=== PATIENT | male | born 1940 | race Caucasian/White ===

== ENCOUNTER 2017-08-16 21:57 | Emergency (ER) | payer MEDICARE, OTHER ==
[~2017-08-16] VITALS: Ht 170.2 cm; Wt 71.0 kg
[~2017-08-16 21:57] MED LIST: LISI-661 PO; METF750T2 PO
[2017-08-16] MEDS ORDERED: SOTA80TA PO (22:18)
[2017-08-16] MEDS ORDERED: FURO40TA5 PO (22:18)
[2017-08-16] MEDS ORDERED: SITA100 PO (22:18)
[2017-08-16] MEDS ORDERED: OMEP20CA10 PO (22:18)
[2017-08-16] MEDS ORDERED: AMLO10TA55 PO (22:18)
[2017-08-16 22:24] LABS: GLUCOSE,POINT OF CARE 204 MG/DL (70-110)
[2017-08-16 22:52] LABS: BASOPHILS % (AUTO) 0.4 % (0.0-2.0); EOSINOPHILS % (AUTO) 1.8 % (1.0-6.0); HEMATOCRIT 37.4 % (41-53); HEMOGLOBIN 13.1 g/dL (13.5-17.5); LYMPHOCYTES # (AUTO) 2.7 K/uL (1.0-4.8); LYMPHOCYTES % (AUTO) 34.1 % (22.0-44.0); MEAN CORPUSCULAR HEMOGLOBIN 28.9 pg (26.0-34.0); MEAN CORPUSCULAR HGB CONC 35.1 G/dL (31.0-37.0); MEAN CORPUSCULAR VOLUME 82 fL (80-100); MONOCYTES # (AUTO) 0.6 K/uL (0.1-1.0); MONOCYTES % (AUTO) 7.8 % (2.0-9.0); NEUTROPHILS # (AUTO) 4.5 K/uL (1.8-7.7); NEUTROPHILS % (AUTO) 55.9 % (40.0-70.0); PLATELET COUNT (AUTO) 240 K/uL (150-450); RED BLOOD CELL COUNT(AUTO) 4.54 MIL/uL (4.50-5.90); RED CELL DISTRIBUTION WIDTH 13.1 % (11.5-14.5)
[2017-08-16] MEDS ORDERED: FUROSEMIDE 40 MG/4 ML VIAL IVP ONE (23:00)
[2017-08-16 23:05] LABS: ANION GAP 7 mmol/L (8-16); CALCIUM, TOTAL 9.1 mg/dL (8.8-10.5); CARBON DIOXIDE 29 mmol/L (22-29); CHLORIDE 100 mmol/L (98-107); CREATININE 1.04 mg/dL (0.60-1.30); GLOMERULAR FILTR. RATE CALC > 60 mL/min (>60); GLUCOSE,RANDOM 208 mg/dL (70-110); POTASSIUM 3.9 mmol/L (3.5-5.1); SODIUM SERUM 136 mmol/L (136-145); UREA NITROGEN, BLOOD 14 mg/dL (7-18)
[2017-08-16 23:06] LABS: PROTHROMBIN TIME 10.3 SEC (9.4-11.6)
[2017-08-16 23:10] LABS: ALANINE AMINOTRANSFERASE 29 U/L (12-78); ALBUMIN 3.6 g/dL (3.4-5.0); ALKALINE PHOSPHATASE 104 U/L (46-116); ASPARTATE AMINOTRANSFERASE 15 U/L (15-37); BILIRUBIN,TOTAL 0.3 mg/dL (0.1-1.0); TOTAL PROTEIN, SERUM 7.4 g/dL (6.4-8.2)
[2017-08-16 23:18] LABS: B-TYPE NATRIURETIC PEPTIDE 13 pg/mL (0-100)
[2017-08-17 04:20] VITALS: BP 109/73
== END 2017-08-17 04:21 | disposition home or self-care (01) ==
LOC: EMS 21:59
DX: M79.89 Other specified soft tissue disorders (principal); R63.5 Abnormal weight gain; E11.9 Type 2 diabetes mellitus without complications; I10 Essential (primary) hypertension
CPT/HCPCS: 36415; 71045; 80053; 82962; 83880; 84484; 85025; 85610; 93005; 93970; 96374; 99285; J1940

== ENCOUNTER 2017-09-04 03:10 | Emergency (ER) | payer MEDICARE, OTHER ==
[~2017-09-04] VITALS: Ht 170.2 cm; Wt 71.0 kg
[~2017-09-04 03:10] MED LIST changes: +AMLO10TA55 PO; +FURO40TA5 PO; +OMEP20CA10 PO; +SITA100 PO; +SOTA80TA PO
[2017-09-04 03:13] VITALS: BP 142/88
[2017-09-04] MEDS ORDERED: GLIP5 PO (03:24)
[2017-09-04] MEDS ORDERED: LORA0.5T2 PO (03:24)
[2017-09-04] MEDS ORDERED: METO25 PO (03:24)
[2017-09-04] MEDS ORDERED: SOTA80 PO (03:24)
[2017-09-04] MEDS ORDERED: FURO20 PO (03:24)
[2017-09-04] MEDS ORDERED: ATOR20TA86 PO (03:24)
[2017-09-04 03:44] LABS: GLUCOSE,POINT OF CARE 246 MG/DL (70-110)
[2017-09-04] MEDS ORDERED: KETOROLAC TROMETHAMINE 60 MG/2 ML VIAL IM ONE (03:45)
[2017-09-04] MEDS ORDERED: KETOROLAC TROMETHAMINE 30 MG/ML VIAL IM ONE (03:45)
== END 2017-09-04 04:05 | disposition home or self-care (01) ==
LOC: EMS 03:13
DX: M19.90 Unspecified osteoarthritis, unspecified site (principal); R60.0 Localized edema; G89.29 Other chronic pain; E11.9 Type 2 diabetes mellitus without complications; I10 Essential (primary) hypertension
CPT/HCPCS: 82962; 96372; 99283; J1885

== ENCOUNTER 2021-08-01 15:45 | Emergency (ER) | payer MEDICARE, OTHER ==
[~2021-08-01] VITALS: Ht 167.6 cm; Wt 75.0 kg
[~2021-08-01 15:45] MED LIST changes: +ATOR20TA86 PO; +FURO20 PO; -FURO40TA5 PO; +GLIP5TAB12 PO; -LISI-661 PO; +LISI-893 PO; +LORA-999 PO; -METF750T2 PO; +METO25 PO; -OMEP20CA10 PO; +OMEP20CA12 PO; +SOTA80 PO; -SOTA80TA PO
[2021-08-01] MEDS ORDERED: ACETAMINOPHEN 500 MG TABLET PO ONE (17:00)
[2021-08-01 18:35] VITALS: BP 124/82
[2021-08-01] MEDS ORDERED: ACET-66 PO (18:57)
== END 2021-08-01 21:04 | disposition home or self-care (01) ==
LOC: EMS 15:50
DX: M25.561 Pain in right knee (principal); M17.0 Bilateral primary osteoarthritis of knee; E11.9 Type 2 diabetes mellitus without complications; I10 Essential (primary) hypertension
CPT/HCPCS: 82962; 99283

== ENCOUNTER 2022-02-06 11:07 | Inpatient (IN) | payer MEDICARE, OTHER ==
[~2022-02-06] VITALS: Ht 167.6 cm; Wt 75.6 kg
[~2022-02-06 11:07] MED LIST changes: +ACET-66 PO
[2022-02-06] MEDS ORDERED: METF-1211 PO (11:13)
[2022-02-06] MEDS ORDERED: ACETAMINOPHEN 500 MG TABLET PO ONE (14:30)
[2022-02-06] MEDS ORDERED: ONDANSETRON HCL 4 MG TABLET PO ONE (15:15)
[2022-02-06 15:16] LABS: BASOPHILS % (AUTO) 0.2 % (0.0-2.0); EOSINOPHILS % (AUTO) 0.5 % (1.0-6.0); HEMATOCRIT 41.8 % (41-53); HEMOGLOBIN 13.3 g/dL (13.5-17.5); LYMPHOCYTES # (AUTO) 2.9 K/uL (1.0-4.8); LYMPHOCYTES % (AUTO) 21.5 % (22.0-44.0); MEAN CORPUSCULAR HEMOGLOBIN 27.1 pg (26.0-34.0); MEAN CORPUSCULAR HGB CONC 31.8 G/dL (31.0-37.0); MEAN CORPUSCULAR VOLUME 85 fL (80-100); MONOCYTES # (AUTO) 0.9 K/uL (0.1-1.0); MONOCYTES % (AUTO) 6.4 % (2.0-9.0); NEUTROPHILS # (AUTO) 9.6 K/uL (1.8-7.7); NEUTROPHILS % (AUTO) 71.4 % (40.0-70.0); PLATELET COUNT (AUTO) 280 K/uL (150-450); RED BLOOD CELL COUNT(AUTO) 4.91 MIL/uL (4.50-5.90)
[2022-02-06 15:26] LABS: ANION GAP 4 mmol/L (8-16); CALCIUM, TOTAL 9.9 mg/dL (8.8-10.5); CARBON DIOXIDE 31 mmol/L (22-29); CHLORIDE 99 mmol/L (98-107); CREATININE 0.88 mg/dL (0.60-1.30); GLOMERULAR FILTR. RATE CALC > 60 mL/min (>60); GLUCOSE,RANDOM 263 mg/dL (70-110); POTASSIUM 3.9 mmol/L (3.5-5.1); SODIUM SERUM 134 mmol/L (136-145); UREA NITROGEN, BLOOD 14 mg/dL (7-18)
[2022-02-06 15:27] LABS: MAGNESIUM 1.4 mg/dL (1.80-2.40); PHOSPHORUS 2.7 mg/dL (2.5-4.9)
[2022-02-06 15:33] LABS: ALANINE AMINOTRANSFERASE 19 U/L (12-78); ALBUMIN 3.5 g/dL (3.4-5.0); ALKALINE PHOSPHATASE 96 U/L (46-116); ASPARTATE AMINOTRANSFERASE 11 U/L (15-37); BILIRUBIN,TOTAL 0.3 mg/dL (0.1-1.0); CREATINE KINASE, TOTAL ONLY 51 U/L (39-308); TOTAL PROTEIN, SERUM 7.2 g/dL (6.4-8.2)
[2022-02-06 15:37] LABS: B-TYPE NATRIURETIC PEPTIDE 12 pg/mL (0-100)
[2022-02-06] MEDS ORDERED: GADOTERATE MEGLUMINE 10 MMOL/20 ML VIAL IVP ONE (16:14)
[2022-02-06] MEDS ORDERED: DEXTROSE 50%-WATER 25 GM/50 ML SYRINGE IVP PRN (16:45)
[2022-02-06] MEDS ORDERED: CloNIDine HCL 0.1 MG TABLET PO PRN (16:45)
[2022-02-06] MEDS: ASPIRIN 81 MG CHEWABLE TABLET PO SCH (16:45)
[2022-02-06 18:23] LABS: COVID AG,FIA SOURCE NASAL SWAB
[2022-02-06] MEDS: AmLODIPine BESYLATE 5 MG TABLET PO SCH (21:27)
[2022-02-06] MEDS: ATORVASTATIN CALCIUM 20 MG TABLET PO SCH (21:28)
[2022-02-06] MEDS: SOTALOL HCL 80 MG TABLET PO SCH (21:30)
[2022-02-07 05:06] VITALS: BP 129/81
[2022-02-07] MEDS: INSULIN LISPRO 100 UNITS/ML SQ PRN ×4 (06:40→20:08)
[2022-02-07 06:51] LABS: GLUCOMETER DEV NAME(LOC) 5S.2B; GLUCOSE,POINT OF CARE 211 MG/DL (70-110)
[2022-02-07 07:20] VITALS: BP 146/86
[2022-02-07] MEDS: SOTALOL HCL 80 MG TABLET PO SCH ×2 (10:24→20:07)
[2022-02-07] MEDS: ASPIRIN 81 MG CHEWABLE TABLET PO SCH (10:25)
[2022-02-07 11:44] VITALS: BP 139/79
[2022-02-07 15:03] VITALS: BP 132/76
[2022-02-07 19:32] VITALS: BP 131/72
[2022-02-07] MEDS: AmLODIPine BESYLATE 5 MG TABLET PO SCH (20:07)
[2022-02-07] MEDS: ATORVASTATIN CALCIUM 20 MG TABLET PO SCH (20:07)
[2022-02-07 20:21] LABS: GLUCOMETER DEV NAME(LOC) 5S.2B; GLUCOSE,POINT OF CARE 183 MG/DL (70-110)
[2022-02-07 20:21] LABS: GLUCOMETER DEV NAME(LOC) 5S.2B; GLUCOSE,POINT OF CARE 366 MG/DL (70-110)
[2022-02-07 20:21] LABS: GLUCOMETER DEV NAME(LOC) 5S.2B; GLUCOSE,POINT OF CARE 241 MG/DL (70-110)
[2022-02-08 00:11] VITALS: BP 138/77
[2022-02-08 04:15] VITALS: BP 140/77
[2022-02-08] MEDS: INSULIN LISPRO 100 UNITS/ML SQ PRN ×2 (06:17→12:02)
[2022-02-08] MEDS: ASPIRIN 81 MG CHEWABLE TABLET PO SCH (08:32)
[2022-02-08] MEDS: SOTALOL HCL 80 MG TABLET PO SCH (08:33)
[2022-02-08 08:35] VITALS: BP 138/94
[2022-02-08 11:24] VITALS: BP 138/69
[2022-02-08] MEDS ORDERED: MAGNESIUM OXIDE 400 MG TABLET PO ONE (12:15)
[2022-02-08] MEDS ORDERED: MetFORMIN HCL 850 MG TABLET PO ONE (12:15)
[2022-02-08 15:31] VITALS: BP 139/85
[2022-02-08] MEDS ORDERED: MetFORMIN HCL 500 MG TABLET PO SCH (18:00)
[2022-02-08 20:52] LABS: GLUCOMETER DEV NAME(LOC) 5S.2B; GLUCOSE,POINT OF CARE 198 MG/DL (70-110)
== END 2022-02-08 16:00 | disposition home or self-care (01) | DRG 55 ==
LOC: EMS 11:12 → 5S 02-07 02:49
PROVIDERS: ADMIT Internal Medicine; ATTEND Internal Medicine
DX: D33.2 Benign neoplasm of brain, unspecified (principal); M17.0 Bilateral primary osteoarthritis of knee; Z20.822 Contact with and (suspected) exposure to COVID-19; I25.10 Atherosclerotic heart disease of native coronary artery without angina pectoris; I11.0 Hypertensive heart disease with heart failure; I50.9 Heart failure, unspecified; E11.65 Type 2 diabetes mellitus with hyperglycemia; Z82.49 Family history of ischemic heart disease and other diseases of the circulatory system; Z83.3 Family history of diabetes mellitus; Z79.4 Long term (current) use of insulin
CPT/HCPCS: 70450; 70553; 71045; 80053; 82533; 82550; 82962; 83735; 83880; 84100; 84146; 84305; 84443; 84484; 85025; 93005; 93306; 99285; Q0162; 36415-L1; 36415-TC

== ENCOUNTER 2022-07-11 09:29 | Emergency (ER) | payer MEDICARE, OTHER ==
[~2022-07-11] VITALS: Ht 170.2 cm; Wt 70.0 kg
[~2022-07-11 09:29] MED LIST changes: -ACET-66 PO; +ATOR20TA PO; -ATOR20TA86 PO; -FURO20 PO; +METF-1211 PO; -METO25 PO
[2022-07-11] MEDS ORDERED: ESCI20TA37 PO (09:35)
[2022-07-11] MEDS ORDERED: GLIP5TAB11 PO (09:35)
[2022-07-11] MEDS ORDERED: ASPI-1451 PO (09:35)
[2022-07-11] MEDS ORDERED: ACETAMINOPHEN 500 MG TABLET PO ONE (11:15)
[2022-07-11 12:26] LABS: BASOPHILS % (AUTO) 0.2 % (0.0-2.0); EOSINOPHILS % (AUTO) 1.6 % (1.0-6.0); HEMATOCRIT 37.5 % (41-53); HEMOGLOBIN 12.5 g/dL (13.5-17.5); LYMPHOCYTES # (AUTO) 2.4 K/uL (1.0-4.8); LYMPHOCYTES % (AUTO) 27.8 % (22.0-44.0); MEAN CORPUSCULAR HEMOGLOBIN 27.8 pg (26.0-34.0); MEAN CORPUSCULAR HGB CONC 33.3 G/dL (31.0-37.0); MEAN CORPUSCULAR VOLUME 83 fL (80-100); MONOCYTES # (AUTO) 0.6 K/uL (0.1-1.0); MONOCYTES % (AUTO) 7.3 % (2.0-9.0); NEUTROPHILS # (AUTO) 5.5 K/uL (1.8-7.7); NEUTROPHILS % (AUTO) 63.1 % (40.0-70.0); PLATELET COUNT (AUTO) 268 K/uL (150-450); RED BLOOD CELL COUNT(AUTO) 4.49 MIL/uL (4.50-5.90); RED CELL DISTRIBUTION WIDTH 13.7 % (11.5-14.5)
[2022-07-11 12:34] LABS: ANION GAP 7 mmol/L (8-16); CALCIUM, TOTAL 9.4 mg/dL (8.8-10.5); CARBON DIOXIDE 26 mmol/L (22-29); CHLORIDE 101 mmol/L (98-107); CREATININE 0.93 mg/dL (0.60-1.30); GLOMERULAR FILTR. RATE CALC > 60 mL/min (>60); GLUCOSE,RANDOM 248 mg/dL (70-110); POTASSIUM 4.2 mmol/L (3.5-5.1); SODIUM SERUM 134 mmol/L (136-145)
[2022-07-11 12:39] LABS: ALANINE AMINOTRANSFERASE 17 U/L (12-78); ALBUMIN 3.5 g/dL (3.4-5.0); ALKALINE PHOSPHATASE 110 U/L (46-116); ASPARTATE AMINOTRANSFERASE 12 U/L (15-37); BILIRUBIN,TOTAL 0.2 mg/dL (0.1-1.0); LIPASE 94 U/L (73-393); TOTAL PROTEIN, SERUM 7.1 g/dL (6.4-8.2)
[2022-07-11] MEDS ORDERED: ACET-66 PO (13:11)
[2022-07-11 13:37] VITALS: BP 111/83
== END 2022-07-11 13:41 | disposition home or self-care (01) ==
LOC: EMS 09:29
DX: S29.011A Strain of muscle and tendon of front wall of thorax, initial encounter (principal); R07.89 Other chest pain; E11.65 Type 2 diabetes mellitus with hyperglycemia; F41.9 Anxiety disorder, unspecified; E78.00 Pure hypercholesterolemia, unspecified; I10 Essential (primary) hypertension; M17.0 Bilateral primary osteoarthritis of knee; W19.XXXA Unspecified fall, initial encounter; Y93.89 Activity, other specified; Y92.89 Other specified places as the place of occurrence of the external cause; Y99.8 Other external cause status
CPT/HCPCS: 71101; 80053; 82962; 83690; 84484; 85025; 93005; 99285

== ENCOUNTER 2022-12-16 10:27 | Emergency (ER) | payer MEDICARE, OTHER ==
[~2022-12-16] VITALS: Ht 170.2 cm; Wt 74.0 kg
[~2022-12-16 10:27] MED LIST changes: +ACET-66 PO; +ASPI-1451 PO; +ESCI20TA37 PO; -GLIP5TAB12 PO; +GLIP5TAB15 PO; -SOTA80 PO; +SOTA80TA90 PO
[2022-12-16 10:40] VITALS: TEMP 98.2
[2022-12-16] MEDS ORDERED: GABA-534 PO (10:46)
[2022-12-16] MEDS ORDERED: SIMV-43 PO (11:42)
[2022-12-16] MEDS ORDERED: FAMO20 PO (11:42)
[2022-12-16] MEDS ORDERED: TAMS0.4C94 PO (11:42)
[2022-12-16] MEDS ORDERED: SEMA1PEN3 SQ (11:42)
[2022-12-16] MEDS ORDERED: LATA2.5D14 OU (11:42)
[2022-12-16] MEDS ORDERED: DORZ10DR10 OU (11:42)
[2022-12-16] MEDS ORDERED: IBUPROFEN 600 MG TABLET PO ONE (11:45)
[2022-12-16] MEDS ORDERED: IBUP-1554 PO (13:54)
[2022-12-16] MEDS ORDERED: ACET-66 PO (13:54)
[2022-12-16 14:31] VITALS: BP 147/85; PULSE 73; RESP 17
[2022-12-16 19:15] LABS: GLUCOMETER DEV NAME(LOC) ER.6; GLUCOSE,POINT OF CARE 247 MG/DL (70-110)
== END 2022-12-16 14:35 | disposition home or self-care (01) ==
LOC: EMS 10:37
DX: S70.02XA Contusion of left hip, initial encounter (principal); E11.65 Type 2 diabetes mellitus with hyperglycemia; E78.00 Pure hypercholesterolemia, unspecified; I10 Essential (primary) hypertension; F41.9 Anxiety disorder, unspecified; M17.0 Bilateral primary osteoarthritis of knee; W01.0XXA Fall on same level from slipping, tripping and stumbling without subsequent striking against object, initial encounter; Y93.89 Activity, other specified; Y92.89 Other specified places as the place of occurrence of the external cause; Y99.8 Other external cause status
CPT/HCPCS: 73503; 82962; 99284

== ENCOUNTER 2023-02-27 11:21 | Emergency (ER) | payer MEDICARE, OTHER ==
[~2023-02-27] VITALS: Ht 170.2 cm; Wt 76.4 kg
[~2023-02-27 11:21] MED LIST changes: -ATOR20TA PO; +DORZ10DR10 OU; +FAMO20 PO; +GABA-534 PO; +IBUP-1554 PO; +LATA2.5D14 OU; -LORA-999 PO; -METF-1211 PO; -OMEP20CA12 PO; +SEMA1PEN3 SQ; +SIMV-43 PO; -SITA100 PO; -SOTA80TA90 PO; +TAMS0.4C94 PO
[2023-02-27 11:36] VITALS: BP 131/75; PULSE 89; RESP 16; TEMP 98
== END 2023-02-27 19:09 | disposition left against medical advice (07) ==
LOC: EMS 11:24
DX: M25.512 Pain in left shoulder (principal); Z53.21 Procedure and treatment not carried out due to patient leaving prior to being seen by health care provider
CPT/HCPCS: 73503; 99281

== ENCOUNTER 2023-11-20 10:23 | Emergency (ER) | payer MEDICARE, OTHER ==
[~2023-11-20] VITALS: Ht 170.2 cm; Wt 68.0 kg
[~2023-11-20 10:23] MED LIST changes: -ACET-66 PO
[2023-11-20 10:35] VITALS: TEMP 98.3
[2023-11-20] MEDS: ACETAMINOPHEN 325 MG TABLET PO ONE (13:04)
[2023-11-20] MEDS: PERTUSS(ACELL),DIPH,TET/PF 0.5 ML SYRINGE [ADULT] IM. ONE (13:35)
[2023-11-20 14:30] VITALS: BP 125/72; PULSE 76; RESP 16; O2SAT 98
== END 2023-11-20 15:40 | disposition home or self-care (01) ==
LOC: EMS 11:50
DX: S70.02XA Contusion of left hip, initial encounter (principal); R07.89 Other chest pain; F41.9 Anxiety disorder, unspecified; E78.00 Pure hypercholesterolemia, unspecified; E11.9 Type 2 diabetes mellitus without complications; I10 Essential (primary) hypertension; M17.0 Bilateral primary osteoarthritis of knee; W10.8XXA Fall (on) (from) other stairs and steps, initial encounter; Y93.01 Activity, walking, marching and hiking; Y92.89 Other specified places as the place of occurrence of the external cause; Y99.8 Other external cause status
CPT/HCPCS: 71101; 73503; 90471; 90715; 99284

== ENCOUNTER 2024-11-15 09:05 | Emergency (ER) | payer MEDICARE, OTHER ==
[~2024-11-15] VITALS: Ht 168.9 cm; Wt 76.4 kg
[~2024-11-15 09:05] MED LIST changes: -GLIP5TAB15 PO; -IBUP-1554 PO; -LATA2.5D14 OU; +LATA2.5D7 OU; +METF-1211 PO; +OMEP20CA12 PO; -SEMA1PEN3 SQ; -TAMS0.4C94 PO
[2024-11-15 09:09] VITALS: TEMP 97.7
[2024-11-15 09:46] LABS: GLUCOMETER DEV NAME(LOC) ERT.7; GLUCOSE,POINT OF CARE 259 MG/DL (70-110)
[2024-11-15] MEDS: IBUPROFEN 600 MG TABLET PO ONE (12:29)
[2024-11-15] MEDS ORDERED: IBUP-1492 PO (12:46)
[2024-11-15 13:12] VITALS: BP 131/85; PULSE 75; RESP 18; O2SAT 97
== END 2024-11-15 13:20 | disposition home or self-care (01) ==
LOC: EMS 09:11
DX: M25.522 Pain in left elbow (principal); E11.9 Type 2 diabetes mellitus without complications; E78.00 Pure hypercholesterolemia, unspecified; F41.9 Anxiety disorder, unspecified; I10 Essential (primary) hypertension; M17.0 Bilateral primary osteoarthritis of knee; Z79.899 Other long term (current) drug therapy
CPT/HCPCS: 82962; 99283

== ENCOUNTER 2025-01-04 09:25 | Inpatient (IN) | payer MEDICARE, OTHER ==
[~2025-01-04] VITALS: Ht 167.6 cm; Wt 74.0 kg
[~2025-01-04 09:25] MED LIST changes: +IBUP-1492 PO
[2025-01-04 09:56] LABS: GLUCOMETER DEV NAME(LOC) ERT.7; GLUCOSE,POINT OF CARE 125 MG/DL (70-110)
[2025-01-04 10:27] LABS: APPEARANCE,URINE CLEAR (CLEAR); GLUCOSE, URINE (UA) NEGATIVE (NEGATIVE); LEUKOCYTE ESTERASE ,URINE NEGATIVE (NEGATIVE); NITRATE,URINE NEGATIVE (NEGATIVE); OCCULT BLOOD,URINE NEGATIVE (NEGATIVE); SPECIFIC GRAVITIY, URINE 1.026 (1.003-1.030)
[2025-01-04 10:48] LABS: PLATELET COUNT (AUTO) 224 K/uL (150-450); RED BLOOD CELL COUNT(AUTO) 4.62 MIL/uL (4.50-5.90); RED CELL DISTRIBUTION WIDTH 14.4 % (11.5-14.5); WHITE BLOOD COUNT (AUTO) 10.1 K/uL (4.5-11.0)
[2025-01-04 10:56] LABS: CALCIUM, TOTAL 9.5 mg/dL (8.8-10.5); CREATININE 0.78 mg/dL (0.60-1.30); GLOMERULAR FILTR. RATE CALC > 60 mL/min (>60); GLUCOSE,RANDOM 123 mg/dL (70-110); SODIUM SERUM 139 mmol/L (136-145); UREA NITROGEN, BLOOD 11 mg/dL (7-18)
[2025-01-04] MEDS: MORPHINE SULFATE 4 MG/ML SYRINGE IM ONE (10:59)
[2025-01-04] MEDS: ONDANSETRON HCL 4 MG/2 ML VIAL IM ONE (11:00)
[2025-01-04 11:07] LABS: TROPONIN I-HIGH SENSITIVITY 82 ng/L (<76)
[2025-01-04] MEDS: ASPIRIN 325 MG TABLET PO ONE (14:22)
[2025-01-04] MEDS: POTASSIUM CHLORIDE 20 MEQ ER TABLET PO ONE (14:22)
[2025-01-04] MEDS: SODIUM CHLORIDE 0.9% 1,000 ML IV ONE (14:23)
[2025-01-04 15:19] LABS: TROPONIN I-HIGH SENSITIVITY 91 ng/L (<76)
[2025-01-04] MEDS ORDERED: KETOROLAC TROMETHAMINE 30 MG/ML VIAL IVP ONE ×2 (16:15)
[2025-01-04 17:00] VITALS: BP 155/72; PULSE 82; RESP 18; TEMP 98.2; O2SAT 97
[2025-01-04 17:53] VITALS: BP 153/89; PULSE 73; RESP 20; TEMP 97.8; O2SAT 97
[2025-01-04] MEDS ORDERED: ACETAMINOPHEN 325 MG TABLET PO PRN (19:30)
[2025-01-04] MEDS ORDERED: ONDANSETRON HCL 4 MG/2 ML VIAL IVP PRN (19:30)
[2025-01-04] MEDS ORDERED: ZOLPIDEM TARTRATE 5 MG TABLET PO PRN (19:30)
[2025-01-04 19:34] VITALS: BP 147/91; PULSE 66; RESP 20; TEMP 97.5; O2SAT 95
[2025-01-04] MEDS: SIMVASTATIN 20 MG TABLET PO SCH (20:07)
[2025-01-04] MEDS: DOCUSATE SODIUM 100 MG CAPSULE PO SCH (20:07)
[2025-01-04] MEDS: HEPARIN SODIUM,PORCINE 5,000 UNITS/ML VIAL SQ SCH (23:27)
[2025-01-04] MEDS: HYDROCODONE/ACETAMINOPHEN 5-325 MG TABLET PO PRN (23:33)
[2025-01-04 23:48] VITALS: BP 148/94; PULSE 73; RESP 18; TEMP 97.5; O2SAT 95
[2025-01-05] VITALS (7 sets, daily range): BP systolic 136–151; BP diastolic 80–99; PULSE 72–83; RESP 18–22; TEMP 97.5–98.2; O2SAT 95–97
[2025-01-05] MEDS: MAGNESIUM HYDROXIDE SUSPENSION 30 ML UDCUP PO PRN (00:47)
[2025-01-05] MEDS: MORPHINE SULFATE 4 MG/ML SYRINGE IVP PRN (00:49)
[2025-01-05 07:25] LABS: PLATELET COUNT (AUTO) 230 K/uL (150-450); RED BLOOD CELL COUNT(AUTO) 4.55 MIL/uL (4.50-5.90); RED CELL DISTRIBUTION WIDTH 14.3 % (11.5-14.5); WHITE BLOOD COUNT (AUTO) 10.8 K/uL (4.5-11.0)
[2025-01-05 07:29] LABS: CALCIUM, TOTAL 9.1 mg/dL (8.8-10.5); CREATININE 0.73 mg/dL (0.60-1.30); GLOMERULAR FILTR. RATE CALC > 60 mL/min (>60); GLUCOSE,RANDOM 117 mg/dL (70-110); SODIUM SERUM 141 mmol/L (136-145); UREA NITROGEN, BLOOD 10 mg/dL (7-18)
[2025-01-05 07:39] LABS: TROPONIN I-HIGH SENSITIVITY 77 ng/L (<76)
[2025-01-05] MEDS: ASPIRIN 81 MG CHEWABLE TABLET PO SCH (08:24)
[2025-01-05] MEDS: PANTOPRAZOLE SODIUM 40 MG DR TABLET PO SCH (08:24)
[2025-01-05] MEDS: ESCITALOPRAM OXALATE 20 MG TABLET PO SCH (08:24)
[2025-01-05] MEDS ORDERED: GLIP5TAB16 PO (10:49)
[2025-01-05] MEDS: POLYETHYLENE GLYCOL 3350 17 GM PACKET PO SCH (13:01)
[2025-01-05] MEDS: BISACODYL 10 MG RECTAL RECTAL SUPPOSITORY PR PRN (13:01)
[2025-01-05] MEDS: GABAPENTIN 400 MG CAPSULE PO SCH (20:57)
[2025-01-06 03:43] VITALS: BP 142/85; PULSE 79; RESP 18; TEMP 98.6; O2SAT 95
[2025-01-06 06:45] LABS: PLATELET COUNT (AUTO) 240 K/uL (150-450); RED BLOOD CELL COUNT(AUTO) 4.47 MIL/uL (4.50-5.90); RED CELL DISTRIBUTION WIDTH 14.3 % (11.5-14.5); WHITE BLOOD COUNT (AUTO) 11.9 K/uL (4.5-11.0)
[2025-01-06 07:09] VITALS: BP 144/82; PULSE 80; RESP 19; TEMP 98.2; O2SAT 96
[2025-01-06 07:11] LABS: CALCIUM, TOTAL 9.5 mg/dL (8.8-10.5); CREATININE 0.84 mg/dL (0.60-1.30); GLOMERULAR FILTR. RATE CALC > 60 mL/min (>60); GLUCOSE,RANDOM 127 mg/dL (70-110); SODIUM SERUM 139 mmol/L (136-145); TROPONIN I-HIGH SENSITIVITY 66 ng/L (<76); UREA NITROGEN, BLOOD 13 mg/dL (7-18)
[2025-01-06] MEDS: POLYETHYLENE GLYCOL 3350 17 GM PACKET PO SCH (08:57)
[2025-01-06] MEDS: LOSARTAN POTASSIUM 25 MG TABLET PO SCH (08:58)
[2025-01-06] MEDS: EMPAGLIFLOZIN 10 MG TABLET PO SCH (08:59)
[2025-01-06] MEDS: METOPROLOL SUCCINATE 25 MG ER TABLET PO SCH (08:59)
[2025-01-06] MEDS: SPIRONOLACTONE 25 MG TABLET PO SCH (09:00)
[2025-01-06 09:10] VITALS: O2SAT 96
[2025-01-06 11:26] VITALS: BP 157/84; PULSE 78; RESP 19; TEMP 98.2; O2SAT 97
[2025-01-06] MEDS ORDERED: EMPA10TA3 PO (12:34)
[2025-01-06] MEDS ORDERED: POLY17PO62 PO (12:34)
[2025-01-06] MEDS ORDERED: METO25XL PO (12:34)
[2025-01-06] MEDS ORDERED: SPIR-37 PO (12:34)
[2025-01-06] MEDS ORDERED: LOSA-417 PO (12:34)
[2025-01-06 15:25] VITALS: BP 124/81; PULSE 83; RESP 18; TEMP 98.4; O2SAT 96
== END 2025-01-06 17:05 | disposition home health service (06) | DRG 391 ==
LOC: EMS 09:25 → EDH 13:53 → 5S 17:16 → UNDODISIN 01-06 14:45
PROVIDERS: ADMIT Internal Medicine; ATTEND Internal Medicine
DX: K57.30 Diverticulosis of large intestine without perforation or abscess without bleeding (principal); I50.23 Acute on chronic systolic (congestive) heart failure; I11.0 Hypertensive heart disease with heart failure; E11.9 Type 2 diabetes mellitus without complications; M17.0 Bilateral primary osteoarthritis of knee; E78.00 Pure hypercholesterolemia, unspecified; F41.9 Anxiety disorder, unspecified; K59.00 Constipation, unspecified; E87.6 Hypokalemia; Z79.82 Long term (current) use of aspirin; Z79.84 Long term (current) use of oral hypoglycemic drugs; Z79.899 Other long term (current) drug therapy
CPT/HCPCS: 71045; 71250; 74176; 80048; 81001; 82962; 83690; 83880; 84484; 85025; 93005; 93306; 96360; 96372; 97110; 97116; 97162; 97165; 99285; J1644; J2270; J2405; J7030; 36415-L1; 36415-TC